=== PATIENT | female | born 1970 | race Caucasian/White ===

== ENCOUNTER 2020-04-22 16:00 | Inpatient (IN) | payer BC, OTHER ==
[~2020-04-22] VITALS: Ht 157.5 cm; Wt 77.5 kg
[2020-04-22] MEDS: BUDESONIDE (INHALATION) 180 MCG IH IN SCH (08:00)
[2020-04-22] MEDS ORDERED: ONDANSETRON HCL 4 MG/2 ML VIAL IV ONE (16:30)
[2020-04-22] MEDS ORDERED: SODIUM CHLORIDE 0.9% 1,000 ML IVB ONE (16:30)
[2020-04-22] MEDS ORDERED: ACETAMINOPHEN 325 MG TAB PO ONE ×2 (17:00)
[2020-04-22 17:37] LABS: Basophils # (auto) 0 10 ^3/uL (0-0.2); Basophils % (auto) 0.3 % (0.0-2.0); Eosinophils # (auto) 0 10 ^3/uL (0-0.8); Hematocrit 41.8 % (36.0-46.0); Hemoglobin 14.3 g/dL (12.2-16.2); Lymphocytes # (auto) 0.7 10 ^3/uL (0.4-5.4); Lymphocytes % (auto) 17.7 % (10.0-50.0); Mean Corpuscular Hemoglobin 30.5 pg (28.0-32.0); Mean Corpuscular Hgb Conc. 34.2 g/dL (32.0-36.0); Mean Corpuscular Volume 89.3 fL (80.0-100.0); Monocytes # (auto) 0.2 10 ^3/uL (0-1.3); Neutrophils # (auto) 3.2 10 ^3/uL (1.6-8.6); Platelet Count (auto) 156 10^3/uL (140-450); Red Blood Cells 4.69 10^6/uL (4.0-5.20); Red Cell Distribution Width 13.2 % (11.8-14.3); White Blood Cell 4.1 10^3/uL (4.4-10.8)
[2020-04-22 17:54] LABS: Calcium 8.3 mg/dL (8.5-10.1); Magnesium 2.3 mg/dL (1.6-2.6); Potassium 4.4 mmol/L (3.5-5.1)
[2020-04-22 17:57] LABS: BUN/Creatinine Ratio 12.3; Bilirubin, Total 0.3 mg/dL (0.2-1.0); Total Protein 6.9 g/dL (6.4-8.2)
[2020-04-22] MEDS ORDERED: MORPHINE SULF INJ 2 MG/ML SYRINGE 1ML IV PRN ×2 (18:00→19:45)
[2020-04-22] MEDS ORDERED: NITROGLYCERIN 0.4 MG SL TAB SL PRN (18:00)
[2020-04-22 18:01] LABS: INR 0.94 (0.9-1.15); Partial Thromboplastin Time 28.5 sec (23.0-31.2)
[2020-04-22] MEDS ORDERED: LACTULOSE 20Gm/30ML SOLN PO PRN (19:45)
[2020-04-22] MEDS ORDERED: REMDESIVIR PER PHARMACY IV SCH (19:45)
[2020-04-22] MEDS ORDERED: traMADol HCL 50 MG TAB PO PRN (19:45)
[2020-04-22] MEDS ORDERED: LORazepam 0.5 MG TAB PO PRN (19:45)
[2020-04-22] MEDS ORDERED: DEXTROSE (50%) 50ML SYRG IV PRN (19:45)
[2020-04-22] MEDS: SODIUM CHLORIDE 0.9% 1,000 ML IV SCH (21:43)
[2020-04-22] MEDS: DOXYCYCLINE 100MG/250ML 250 ML IV SCH (21:44)
[2020-04-22] MEDS: FAMOTIDINE 20 MG TAB PO SCH (21:44)
[2020-04-22] MEDS: ACCU-CHEK COMFORT CURVE STRIP VI SCH (22:32)
[2020-04-22] MEDS: InsuLIN REG 1unit/0.01ml Soln (100units/ml) SC SCH (22:33)
[2020-04-22] MEDS: ACETAMINOPHEN 325 MG TAB PO PRN (22:43)
[2020-04-22 23:21] LABS: Urine Bacteria FEW /hpf (None Seen); Urine Blood Negative /uL (Negative); Urine Mucus FEW (None Seen); Urine Specific Gravity 1.017 (1.001-1.035); Urine WBC 2 /hpf (0 - 5)
[2020-04-23] MEDS ORDERED: OMEP-263 PO (00:05)
[2020-04-23] MEDS ORDERED: LEVO50TA7 PO (00:05)
[2020-04-23] MEDS ORDERED: AMLO5TAB15 PO (00:05)
[2020-04-23] MEDS ORDERED: ATOR10TA52 PO (00:05)
[2020-04-23] MEDS ORDERED: METF-916 PO (00:05)
[2020-04-23] MEDS ORDERED: LOSA-69 PO (00:05)
[2020-04-23] MEDS ORDERED: TRAM50TA2 PO (00:05)
[2020-04-23 00:20] VITALS: BP 113/69
[2020-04-23 05:03] VITALS: BP 143/88
[2020-04-23 05:15] VITALS: BP 121/68
[2020-04-23] MEDS: ACCU-CHEK COMFORT CURVE STRIP VI SCH ×4 (06:01→21:56)
[2020-04-23] MEDS: InsuLIN REG 1unit/0.01ml Soln (100units/ml) SC SCH ×4 (06:01→21:59)
[2020-04-23 06:39] LABS: Basophils # (auto) 0 10 ^3/uL (0-0.2); Basophils % (auto) 0.9 % (0.0-2.0); Eosinophils # (auto) 0 10 ^3/uL (0-0.8); Eosinophils % (auto) 0.1 % (0.0-7.0); Hematocrit 42.4 % (36.0-46.0); Hemoglobin 14.1 g/dL (12.2-16.2); Lymphocytes % (auto) 24.5 % (10.0-50.0); Mean Corpuscular Hemoglobin 29.9 pg (28.0-32.0); Mean Corpuscular Hgb Conc. 33.3 g/dL (32.0-36.0); Mean Corpuscular Volume 89.9 fL (80.0-100.0); Monocytes # (auto) 0.2 10 ^3/uL (0-1.3); Neutrophils # (auto) 2.9 10 ^3/uL (1.6-8.6); Neutrophils % (auto) 70.5 % (37.0-80.0); Nucleated Red Blood Cells % 0.1 %; Platelet Count (auto) 154 10^3/uL (140-450); Red Blood Cells 4.72 10^6/uL (4.0-5.20); Red Cell Distribution Width 13.5 % (11.8-14.3); White Blood Cell 4.1 10^3/uL (4.4-10.8)
[2020-04-23 07:01] LABS: Potassium 3.6 mmol/L (3.5-5.1)
[2020-04-23 07:12] LABS: Albumin 2.9 g/dL (3.4-5.0); BUN/Creatinine Ratio 8.9; Bilirubin, Total 0.4 mg/dL (0.2-1.0); Total Protein 6.8 g/dL (6.4-8.2)
[2020-04-23] MEDS: BUDESONIDE (INHALATION) 180 MCG IH IN SCH ×2 (07:30→22:00)
[2020-04-23 09:00] VITALS: BP 115/69
[2020-04-23] MEDS ORDERED: cefTRIAXone 1GM/50ML D5W 50 ML IV SCH (09:00)
--- NOTE | 2020-04-23 09:00 | NUR ---
PATIENT SWABBED FOR COVID IN-HOUSE, SENT SWAB PER PROTOCOL WITH LEX TO LAB.
[2020-04-23] MEDS: SODIUM CHLORIDE 0.9% 1,000 ML IV SCH (09:10)
[2020-04-23] MEDS: DexAMETHasone SOD PHOS 10MG/1ML VIAL INJ IV SCH (09:10)
[2020-04-23] MEDS: DOXYCYCLINE 100MG/250ML 250 ML IV SCH (09:10)
[2020-04-23] MEDS ORDERED: REMDESIVIR PER PHARMACY IV SCH (09:45)
[2020-04-23] MEDS ORDERED: ENOXAPARIN SOD 40 MG/0.4 ML SYRINGE SC SCH (10:00)
[2020-04-23] MEDS ORDERED: POTASSIUM CHL 10 Meq TABLET PO ONE (10:30)
[2020-04-23] MEDS ORDERED: FUROSEMIDE 20 MG/2 ML VIAL IV ONE (10:30)
[2020-04-23] MEDS: ZINC SULFATE 220mg CAP or TAB PO SCH (10:35)
[2020-04-23] MEDS: FAMOTIDINE 20 MG TAB PO SCH ×2 (10:35→21:56)
[2020-04-23] MEDS: CHOLECALCIFEROL (VITD3) 2,000 UNIT CAP PO SCH (10:36)
[2020-04-23] MEDS: ENOXAPARIN SOD 80 MG/0.8ML SYRINGE SC SCH ×2 (10:36→21:56)
[2020-04-23] MEDS: ASCORBIC ACID 1,000 MG TAB PO SCH (10:36)
[2020-04-23] MEDS ORDERED: ENOXAPARIN SOD 40 MG/0.4 ML SYRINGE SC ONE (10:45)
--- NOTE | 2020-04-23 11:25 | NUR ---
PATIENT SWABBED FOR FLUE A/B RAPID. SENT TO LAB.
[2020-04-23] MEDS: PIPERACILLIN-TAZOB 3.375GM 100 ML IV SCH ×3 (11:33→23:38)
[2020-04-23] MEDS: ALBUTEROL SULF HFA 90MCG INH 200DOSE IN PRN ×2 (14:23→23:20)
[2020-04-23 17:36] VITALS: BP 121/78
--- NOTE | 2020-04-23 18:30 | NUR ---
PATIENT WAS CONSENTED BY DR CHÁVEZ AND GIVEN FACT SHEET BY MYSELF, PATIENT INFORMED OF POTENTIAL RISK/BENEFIT, INFORMED OF ALTERNATIVES, INFORMED THAT REMEDSEVIR IS AN UNAPPROVED DRUG AND AUTHORIZED FOR USE UNDER [place]. INFORMED PATIENT SHE HAS THE OPTION TO REFUSE OR ACCEPT. PATIENT VERBALIZED UNDERSTANDING OF ALL INFORMATION WHICH WAS PROVIDED BY THE DR AND MYSELF.
--- NOTE | 2020-04-23 19:43 | NUR ---
Opening Shift Note Assumed care of patient, awake and alert. No S/S of distress/SOB or pain. Instructed on POC and to call for assist PRN, will continue to monitor for changes Q1hr and PRN.
[2020-04-23 23:40] VITALS: BP 104/57
[2020-04-24] MEDS: ACETAMINOPHEN 325 MG TAB PO PRN ×3 (04:48→21:55)
[2020-04-24 05:20] VITALS: BP 89/65
[2020-04-24] MEDS: LEVOTHYROXINE SODIUM 50 MCG TAB PO SCH (06:12)
[2020-04-24] MEDS: InsuLIN REG 1unit/0.01ml Soln (100units/ml) SC SCH ×4 (06:12→21:48)
[2020-04-24] MEDS: PIPERACILLIN-TAZOB 3.375GM 100 ML IV SCH ×3 (06:12→18:30)
[2020-04-24] MEDS: ACCU-CHEK COMFORT CURVE STRIP VI SCH ×4 (06:12→21:42)
[2020-04-24 06:18] LABS: Basophils # (auto) 0 10 ^3/uL (0-0.2); Basophils % (auto) 0.1 % (0.0-2.0); Eosinophils # (auto) 0 10 ^3/uL (0-0.8); Hematocrit 38.6 % (36.0-46.0); Lymphocytes # (auto) 0.8 10 ^3/uL (0.4-5.4); Lymphocytes % (auto) 10.8 % (10.0-50.0); Mean Corpuscular Hemoglobin 30.2 pg (28.0-32.0); Mean Corpuscular Hgb Conc. 33.8 g/dL (32.0-36.0); Mean Corpuscular Volume 89.3 fL (80.0-100.0); Monocytes # (auto) 0.3 10 ^3/uL (0-1.3); Monocytes % (auto) 4.2 % (0.0-12.0); Neutrophils # (auto) 6.1 10 ^3/uL (1.6-8.6); Neutrophils % (auto) 84.9 % (37.0-80.0); Platelet Count (auto) 186 10^3/uL (140-450); Red Blood Cells 4.32 10^6/uL (4.0-5.20); Red Cell Distribution Width 13.5 % (11.8-14.3); White Blood Cell 7.2 10^3/uL (4.4-10.8)
[2020-04-24 06:31] LABS: Potassium 3.8 mmol/L (3.5-5.1)
[2020-04-24 06:42] LABS: Albumin 2.6 g/dL (3.4-5.0); BUN/Creatinine Ratio 13.2; Bilirubin, Total 0.4 mg/dL (0.2-1.0); Calcium 8.2 mg/dL (8.5-10.1); Magnesium 2.3 mg/dL (1.6-2.6); Total Protein 6.3 g/dL (6.4-8.2)
[2020-04-24] MEDS: BUDESONIDE (INHALATION) 180 MCG IH IN SCH ×2 (07:26→19:50)
[2020-04-24 09:00] VITALS: BP 104/70
[2020-04-24] MEDS: DexAMETHasone SOD PHOS 10MG/1ML VIAL INJ IV SCH (09:45)
[2020-04-24] MEDS: POTASSIUM CHL 10 Meq TABLET PO SCH (09:45)
[2020-04-24] MEDS: FAMOTIDINE 20 MG TAB PO SCH ×2 (09:45→21:42)
[2020-04-24] MEDS: ZINC SULFATE 220mg CAP or TAB PO SCH (09:45)
[2020-04-24] MEDS: ASCORBIC ACID 1,000 MG TAB PO SCH (09:45)
[2020-04-24] MEDS: CHOLECALCIFEROL (VITD3) 2,000 UNIT CAP PO SCH (09:45)
[2020-04-24] MEDS: FUROSEMIDE 20 MG/2 ML VIAL IV SCH (09:46)
[2020-04-24] MEDS: ENOXAPARIN SOD 80 MG/0.8ML SYRINGE SC SCH ×2 (09:46→21:42)
[2020-04-24 10:27] LABS: Hepatitis B Surface Antibody Negative
--- NOTE | 2020-04-24 10:45 | NUR ---
Called pharmacy to ensure they knew about patients covid status. They will prepare remdesevir.
[2020-04-24 11:03] LABS: Hepatitis A Total Antibody Positive
--- NOTE | 2020-04-24 11:59 | NUR ---
Waiting for pharmacy to send zosyn.
[2020-04-24] MEDS: PROMETHAZINE HCL 25 MG/ML 1ML IV PRN (12:35)
[2020-04-24 14:02] LABS: Hepatitis B Surface Antigen Negative (Negative); Hepatitis C Antibody Negative (Negative)
[2020-04-24 14:03] LABS: Hepatitis B Core Total AB Positive
[2020-04-24 14:22] VITALS: BP 101/68
[2020-04-24] MEDS: ALBUTEROL SULF HFA 90MCG INH 200DOSE IN PRN (14:38)
--- NOTE | 2020-04-24 16:18 | NUR ---
D/C Planning Regarding social service consult for home oxygen at 2 l/min. Faxed clinical information to [facility] requesting for oxygen portable to be deliver to front lobby and concentrate oxygen to home. Per Margarita with [facility] order has been received and deliver to front lobby. [facility] Esqueda confirmed that oxygen has been deliver to patient at 14:30.
[2020-04-24 16:57] VITALS: BP 110/73
[2020-04-24] MEDS ORDERED: REMDESIVIR 200 MG in NS 210ml LOADING DOSE ADULT IV ONE (17:00)
--- NOTE | 2020-04-24 18:30 | NUR ---
REMDESEVIR VITALS PRE- 110/73, 98.9, 66. 20,92% 15 MIN- 112/76, 98.1, 68, 20, 92% POST- 116/74, 98.1, 70, 20, 91%
--- NOTE | 2020-04-24 18:42 | NUR ---
PER BLOOD BANK PLASMA READY TO THAW, WILL INFORM STORAGE CENTER MANAGER.
--- NOTE | 2020-04-24 21:56 | NUR ---
01/26 PAIN. PATIENT C/O 01/26 HEADACHE . PATIENT REFUSED MORPHINE AND ONLY WANTS TYLENOL. ICE PACK TO BE GIVEN NOW.
[2020-04-24 23:43] VITALS: BP 100/67
[2020-04-25] VITALS (8 sets, daily range): BP systolic 96–116; BP diastolic 50–69
[2020-04-25] MEDS: ALBUTEROL SULF HFA 90MCG INH 200DOSE IN PRN ×3 (01:07→21:30)
[2020-04-25] MEDS: PIPERACILLIN-TAZOB 3.375GM 100 ML IV SCH ×4 (05:32→18:00)
[2020-04-25] MEDS: ACETAMINOPHEN 325 MG TAB PO PRN ×2 (05:41→20:45)
[2020-04-25] MEDS: ACCU-CHEK COMFORT CURVE STRIP VI SCH ×4 (05:52→22:01)
[2020-04-25] MEDS: LEVOTHYROXINE SODIUM 50 MCG TAB PO SCH (05:52)
[2020-04-25] MEDS: InsuLIN REG 1unit/0.01ml Soln (100units/ml) SC SCH ×4 (05:53→22:00)
[2020-04-25 07:09] LABS: Potassium 3.4 mmol/L (3.5-5.1)
--- NOTE | 2020-04-25 07:30 | NUR ---
RECEIVED REPORT FROM NIGHT NURSE. PATIENT RESTING IN BED, NO DISTRESS NOTED. NASAL CANNULA 4L. WILL CONTINUE TO MONITOR.
[2020-04-25 07:32] LABS: Albumin 2.6 g/dL (3.4-5.0); BUN/Creatinine Ratio 17.1; Bilirubin, Total 0.5 mg/dL (0.2-1.0); Calcium 8.3 mg/dL (8.5-10.1); Total Protein 6.6 g/dL (6.4-8.2)
[2020-04-25] MEDS: BUDESONIDE (INHALATION) 180 MCG IH IN SCH ×2 (07:50→21:30)
[2020-04-25] MEDS: CHOLECALCIFEROL (VITD3) 2,000 UNIT CAP PO SCH (10:51)
[2020-04-25] MEDS: ENOXAPARIN SOD 80 MG/0.8ML SYRINGE SC SCH ×2 (10:51→21:57)
[2020-04-25] MEDS: FAMOTIDINE 20 MG TAB PO SCH ×2 (10:51→21:57)
[2020-04-25] MEDS: ASCORBIC ACID 1,000 MG TAB PO SCH (10:52)
[2020-04-25] MEDS: FUROSEMIDE 20 MG/2 ML VIAL IV SCH (10:52)
[2020-04-25] MEDS: POTASSIUM CHL 10 Meq TABLET PO SCH (10:52)
[2020-04-25] MEDS ORDERED: POTASSIUM CHL 20 Meq TABLET PO ONE (11:00)
--- NOTE | 2020-04-25 11:00 | NUR ---
SPOKE WITH DR. CHÁVEZ, UPDATED HER ON PATIENT CONDITION. ORDERS RECEIVED, WILL PLACE AND CARRY OUT.
--- NOTE | 2020-04-25 11:02 | NUR ---
Nutrition Assessment Notes Please refer to link for full assessment notes. Est Energy needs: [id number] kcals (17-20 kcal/kgBW) Est Protein needs: 66-83 gms/day (0.8-1.0 gm/kgBW) Will continue to monitor and reassess prn. Addendum: 04/25/20 at [address] Amended: Links added.
[2020-04-25] MEDS: ZINC SULFATE 220mg CAP or TAB PO SCH (12:09)
[2020-04-25] MEDS: DexAMETHasone SOD PHOS 10MG/1ML VIAL INJ IV SCH (12:09)
[2020-04-25] MEDS: THROAT LOZENGES(CEPASTAT) MT PRN (12:11)
--- NOTE | 2020-04-25 12:16 | NUR ---
Assessment Patient is a 49-year-old female who is alert and oriented. Prior to admission patient reside with her fiance Desmond and functioned independently. Prior to admission patient could care for her own ADLs. Patient does not have any medical equipment now. Per patient she will return home to her prior living arrangements post discharge and Desmond will transport patient at any time on discharge day. Advised patient to follow up with primary doctor upon d.c day. Informed patient she has the right to speak to Social Service regarding all care. Informed patient she has the right to participate in all discharge planning. Patient does not have an advance directive. Patient has been provided with an advanced directive. Patient verbalized understanding and agrees to discharge plan. Advised patient home oxygen was order on Friday. Per patient oxygen portable its a bedside and [facility] has deliver concentrate oxygen to home on Friday. Addendum: 04/25/20 at 1220 by AMARILIS REYNOSO Amended: Links added.
--- NOTE | 2020-04-25 16:49 | NUR ---
PAGED DR CHÁVEZ REGARDING DECREASED BLOOD PRESSURE 98/62 PRIOR TO REMDESIVIR ADMINISTRATION. WILL HOLD MEDICATION UNTIL FURTHER INSTRUCTION BY . Addendum: 04/25/20 at 1708 by Cleo Hernandez RN NO CALL BACK FROM DR. CHÁVEZ BLOOD PRESSURE RE-CHECKED 106/69. REMDESIVIR INITIATED. RUNNING OVER 2 HOURS. WILL MONITOR BLOOD PRESSURE.
--- NOTE | 2020-04-25 17:05 | NUR ---
REMDESIVIR REMDESIVIR INITIATED VITALS BP 106/69, HR 71, RR 18, O2 93% TEMP 98.5. RUNNING AT 175ML/HR OVER 2 HOURS. WILL MONITOR VITALS.
[2020-04-25] MEDS: REMDESIVIR 100 MG in SODIUM CHL 0.9% 250 ML IV SCH (17:06)
--- NOTE | 2020-04-25 17:20 | NUR ---
REMDESIVIR 15 MIN VITALS BP 101/63, HR 76, RR 18, O2 92%, TEMP 98.9. PATIENT TOLERATING MEDICATION WILL, WILL CONTINUE TO MONITOR.
--- NOTE | 2020-04-25 19:00 | NUR ---
REMDESIVIR REMDESIVIR COMPLETED. PATIENT TOLERATED MEDICATION WELL. VITALS BP 96/62, HR 81, RR 22, O2 92% TEMP 98.3. WILL CONTINUE TO MONITOR. WILL ENDORSE 1 HOUR POST TRANSFUSION VITALS TO ONCOMING NIGHT NURSE.
--- NOTE | 2020-04-25 19:11 | NUR ---
PATIENT CARE ENDORSED TO NIGHT NURSE.
--- NOTE | 2020-04-25 20:00 | NUR ---
REMDESBERT VITAL SIGNS 1 HOUR POST INFUSION BP 98/60 HR 75 SPO2 92% TEMP 99.1 RR 24. PATIENT HAS NO S/S OF DISTRESS OR SOB. WILL CONTINUE TO MONITOR Q1 AND PRN.
--- NOTE | 2020-04-25 21:46 | NUR ---
TEMPERATURE 100.3F STARTED COOLING MEASURES, PLACED ICEPACKS UNDER BILATERAL UNDERARMS AND GROIN. PATIENT COMPLAINS OF HEADACHE AT THIS TIME. WILL MEDICATE PER MD ORDERS. Addendum: 04/26/20 at 0454 by Nisa Ott RN TEMPERATURE RECHECK 98.7 F, PATIENT IS RESTING COMFORTABLY IN BED, NO COMPLAINTS. WILL CONTINUE TO MONITOR PATIENT Q1 AND PRN.
[2020-04-25] MEDS: PROMETHAZINE HCL 25 MG/ML 1ML IV PRN (22:09)
[2020-04-26] MEDS: PIPERACILLIN-TAZOB 3.375GM 100 ML IV SCH ×4 (00:53→18:22)
[2020-04-26] MEDS: ACETAMINOPHEN 325 MG TAB PO PRN (02:49)
[2020-04-26] MEDS: THROAT LOZENGES(CEPASTAT) MT PRN ×3 (06:35→20:40)
[2020-04-26] MEDS: LEVOTHYROXINE SODIUM 50 MCG TAB PO SCH (06:35)
[2020-04-26] MEDS: InsuLIN REG 1unit/0.01ml Soln (100units/ml) SC SCH ×4 (06:35→21:56)
[2020-04-26] MEDS: ACCU-CHEK COMFORT CURVE STRIP VI SCH ×4 (06:35→21:49)
--- NOTE | 2020-04-26 07:30 | NUR ---
RECEIVED REPORT FROM NIGHT NURSE. PATIENT RESTING IN BED, NO DISTRESS NOTED. 6L NC, SATING 91%. WILL CONTINUE TO MONITOR.
[2020-04-26] MEDS: ALBUTEROL SULF HFA 90MCG INH 200DOSE IN PRN ×2 (08:00→19:24)
[2020-04-26 09:00] VITALS: BP 107/63
[2020-04-26] MEDS: BUDESONIDE (INHALATION) 180 MCG IH IN SCH (10:00)
[2020-04-26] MEDS: DexAMETHasone SOD PHOS 10MG/1ML VIAL INJ IV SCH (10:18)
[2020-04-26] MEDS: ZINC SULFATE 220mg CAP or TAB PO SCH (10:18)
[2020-04-26] MEDS: POTASSIUM CHL 10 Meq TABLET PO SCH (10:18)
[2020-04-26] MEDS: FUROSEMIDE 20 MG/2 ML VIAL IV SCH (10:18)
[2020-04-26] MEDS: FAMOTIDINE 20 MG TAB PO SCH ×2 (10:19→21:56)
[2020-04-26] MEDS: CHOLECALCIFEROL (VITD3) 2,000 UNIT CAP PO SCH (10:19)
[2020-04-26] MEDS: ENOXAPARIN SOD 80 MG/0.8ML SYRINGE SC SCH ×2 (10:19→21:57)
--- NOTE | 2020-04-26 11:43 | NUR ---
DR. CHÁVEZ AT BEDSIDE. ORDERS RECEIVED, WILL PLACE AND CARRY OUT.
[2020-04-26] MEDS ORDERED: ONDANSETRON HCL 4 MG/2 ML VIAL IV PRN (12:15)
[2020-04-26] MEDS: PROMETHAZINE HCL 25 MG/ML 1ML IV PRN (12:31)
[2020-04-26 13:00] VITALS: BP 111/61
--- NOTE | 2020-04-26 16:00 | NUR ---
REMDESIVIR REMDESIVIR INITIATED. VITALS BP 107/68, HR 65, RR 20, O2 92%, TEMP 97.8. WILL CONTINUE TO MONITOR.
--- NOTE | 2020-04-26 16:15 | NUR ---
REMDESIVIR REMDESIVIR 15 MINUTE VITALS. BP 99/63, HR 71, RR22, O2 91%, TEMP 98.0. DUE TO DECREASE IN BLOOD PRESSURE, MEDICATION SLOWED DOWN TO RUN OVER 2 HOURS. WILL CONTINUE TO MONITOR.
[2020-04-26] MEDS: REMDESIVIR 100 MG in SODIUM CHL 0.9% 250 ML IV SCH (16:16)
[2020-04-26 17:00] VITALS: BP 107/68
[2020-04-26] MEDS: ASCORBIC ACID 1,000 MG TAB PO SCH (17:06)
--- NOTE | 2020-04-26 18:23 | NUR ---
REMDESIVIR MEDICATION FINISHED INFUSING. END VITALS BP, 100/70, HR 69, RR 18, O2 91%, TEMP 98.0. PATIENT TOLERATED MEDICATION WELL. WILL CONTINUE TO MONITOR.
[2020-04-26 22:00] VITALS: BP 98/67
[2020-04-27] MEDS: THROAT LOZENGES(CEPASTAT) MT PRN ×3 (00:26→22:45)
[2020-04-27] MEDS: PIPERACILLIN-TAZOB 3.375GM 100 ML IV SCH ×4 (00:26→18:00)
[2020-04-27 05:35] VITALS: BP 109/68
[2020-04-27] MEDS: ACCU-CHEK COMFORT CURVE STRIP VI SCH ×4 (06:31→21:54)
[2020-04-27] MEDS: InsuLIN REG 1unit/0.01ml Soln (100units/ml) SC SCH ×4 (06:31→22:22)
[2020-04-27] MEDS: LEVOTHYROXINE SODIUM 50 MCG TAB PO SCH (06:33)
[2020-04-27 06:51] LABS: Basophils # (auto) 0 10 ^3/uL (0-0.2); Basophils % (auto) 0.2 % (0.0-2.0); Eosinophils # (auto) 0 10 ^3/uL (0-0.8); Eosinophils % (auto) 0.4 % (0.0-7.0); Hematocrit 42.7 % (36.0-46.0); Hemoglobin 14.2 g/dL (12.2-16.2); Lymphocytes # (auto) 1.2 10 ^3/uL (0.4-5.4); Lymphocytes % (auto) 29.7 % (10.0-50.0); Mean Corpuscular Hemoglobin 29.8 pg (28.0-32.0); Mean Corpuscular Hgb Conc. 33.3 g/dL (32.0-36.0); Mean Corpuscular Volume 89.5 fL (80.0-100.0); Monocytes # (auto) 0.5 10 ^3/uL (0-1.3); Monocytes % (auto) 11.2 % (0.0-12.0); Neutrophils # (auto) 2.4 10 ^3/uL (1.6-8.6); Neutrophils % (auto) 58.5 % (37.0-80.0); Nucleated Red Blood Cells % 0.1 %; Platelet Count (auto) 302 10^3/uL (140-450); Red Blood Cells 4.77 10^6/uL (4.0-5.20); Red Cell Distribution Width 13.2 % (11.8-14.3); White Blood Cell 4.1 10^3/uL (4.4-10.8)
[2020-04-27 07:03] LABS: Potassium 3.9 mmol/L (3.5-5.1)
[2020-04-27 07:18] LABS: Albumin 2.5 g/dL (3.4-5.0); BUN/Creatinine Ratio 21.3; Bilirubin, Total 0.4 mg/dL (0.2-1.0); Calcium 8.7 mg/dL (8.5-10.1); Magnesium 2.9 mg/dL (1.6-2.6); Total Protein 6.7 g/dL (6.4-8.2)
[2020-04-27] MEDS: BUDESONIDE (INHALATION) 180 MCG IH IN SCH ×2 (07:31→10:00)
[2020-04-27 09:00] VITALS: BP 101/58
[2020-04-27] MEDS: CHOLECALCIFEROL (VITD3) 2,000 UNIT CAP PO SCH (10:00)
[2020-04-27] MEDS: FAMOTIDINE 20 MG TAB PO SCH ×2 (10:00→21:54)
[2020-04-27] MEDS: ENOXAPARIN SOD 80 MG/0.8ML SYRINGE SC SCH ×2 (10:00→21:54)
[2020-04-27] MEDS: ASCORBIC ACID 1,000 MG TAB PO SCH (10:00)
[2020-04-27] MEDS: FUROSEMIDE 20 MG/2 ML VIAL IV SCH (10:00)
[2020-04-27] MEDS: ZINC SULFATE 220mg CAP or TAB PO SCH (10:00)
[2020-04-27] MEDS: POTASSIUM CHL 10 Meq TABLET PO SCH (10:00)
[2020-04-27] MEDS: DexAMETHasone SOD PHOS 10MG/1ML VIAL INJ IV SCH (10:00)
[2020-04-27] MEDS: ACETAMINOPHEN 325 MG TAB PO PRN (11:40)
--- NOTE | 2020-04-27 12:52 | NUR ---
IV insertion IV access obtained, via clean sterile technique by inserting 22 gauge catheter at LAC after 2 attempts. IV secured properly. No trauma to site. Patient tolerated well.
[2020-04-27 13:00] VITALS: BP 102/67
[2020-04-27 17:00] VITALS: BP 110/63
[2020-04-27] MEDS: REMDESIVIR 100 MG in SODIUM CHL 0.9% 250 ML IV SCH (17:05)
--- NOTE | 2020-04-27 19:35 | NUR ---
Opening Shift Note Assumed care of patient, awake and alert. Patient is currently on 4L NC with a SPO2 of 92% with no S/S of distress/SOB. Bed is locked in lowest position with call light within reach. Instructed on POC and to call for assist PRN, will continue to monitor for changes Q1hr and PRN.
[2020-04-27 22:09] VITALS: BP 106/65
[2020-04-28] MEDS: PIPERACILLIN-TAZOB 3.375GM 100 ML IV SCH ×4 (00:05→18:00)
[2020-04-28 05:00] VITALS: BP 115/67
[2020-04-28] MEDS: InsuLIN REG 1unit/0.01ml Soln (100units/ml) SC SCH ×3 (06:26→17:00)
[2020-04-28] MEDS: ACCU-CHEK COMFORT CURVE STRIP VI SCH ×3 (06:26→17:00)
[2020-04-28] MEDS: LEVOTHYROXINE SODIUM 50 MCG TAB PO SCH (06:26)
[2020-04-28] MEDS: BUDESONIDE (INHALATION) 180 MCG IH IN SCH (07:31)
--- NOTE | 2020-04-28 07:31 | NUR ---
Respiratory note: PT SEEN AT THIS TIME. PT WAS AWAKE AND ALERT, NO RESP DISTRESS NOTED. HR 64, RR 18, SPO2 94% ON 3L N/C. MDI'S NOT AT BEDSIDE. WILL CALL PHARMACY
[2020-04-28 08:17] VITALS: BP 109/70
[2020-04-28] MEDS: FUROSEMIDE 20 MG/2 ML VIAL IV SCH (09:54)
[2020-04-28] MEDS: DexAMETHasone SOD PHOS 10MG/1ML VIAL INJ IV SCH (09:54)
[2020-04-28] MEDS: ZINC SULFATE 220mg CAP or TAB PO SCH (09:55)
[2020-04-28] MEDS: FAMOTIDINE 20 MG TAB PO SCH (09:56)
[2020-04-28] MEDS: ASCORBIC ACID 1,000 MG TAB PO SCH (09:56)
[2020-04-28] MEDS: POTASSIUM CHL 10 Meq TABLET PO SCH (09:56)
[2020-04-28] MEDS: CHOLECALCIFEROL (VITD3) 2,000 UNIT CAP PO SCH (09:57)
[2020-04-28] MEDS: ENOXAPARIN SOD 80 MG/0.8ML SYRINGE SC SCH (09:57)
--- NOTE | 2020-04-28 10:29 | NUR ---
Dr. Roman at [facility] side
[2020-04-28] MEDS ORDERED: BUDE2SUS3 IN (11:59)
[2020-04-28] MEDS ORDERED: ZINC220T6 PO (11:59)
[2020-04-28] MEDS ORDERED: METH4PAK PO (11:59)
[2020-04-28] MEDS ORDERED: DOXY-286 PO (11:59)
[2020-04-28] MEDS ORDERED: CHOL1CAP47 PO (11:59)
[2020-04-28] MEDS ORDERED: ASCO10003 PO (11:59)
[2020-04-28] MEDS ORDERED: ASPI-378 PO (11:59)
[2020-04-28] MEDS ORDERED: ALBUAER3 IN (11:59)
[2020-04-28 12:00] VITALS: BP 107/78
[2020-04-28 14:09] VITALS: BP 109/70
[2020-04-28] MEDS ORDERED: REMDESIVIR 100 MG in SODIUM CHL 0.9% 250 ML IV ONE (15:00)
[2020-04-28 16:00] VITALS: BP 102/72
--- NOTE | 2020-04-28 17:00 | NUR ---
1700 glucose check refused by pt, pt states "it's okay thank you but I never take insulin at home only while I was here and im going home now so Ill take my metformin tomorrow like I always do". Patient educated on s/s of hyper and hypoglycemia and importance of glucose control and monitoring. Patient verbalized understanding.
--- NOTE | 2020-04-28 17:28 | NUR ---
PRE-REMDESIVIR INFUSION VITALS TEMP 98.3 F, BP-104/68, HR 70, RR 20, SPO2 93% ON 3L. 15 MIN POST REMDESIVIR INFUSION VITALS TEMP 98.1 F, BP-100/72, HR 72, RR 18, SPO2 92% ON 3L. POST REMDESIVIR INFUSION VITALS TEMP 98.4 F, BP-105/56, HR 68, RR 20, SPO2 95% ON 3L.
--- NOTE | 2020-04-28 17:30 | NUR ---
PRESCRIPTIONS FILLED AT [facility] AND DELIVERED AT BED SIDE.
--- NOTE | 2020-04-28 18:10 | NUR ---
Discharge instructions given as ordered. Encourage to follow up with PMD as instructed. All questions and concerns addressed. Patient verbalized understanding. Medication reconciliation form completed and copy given to patient. IV removed with catheter intact, pressure dressing applied. Telemetry unit returned to ICU. Patient taken to vehicle via wheelchair with all personal belongings, including portable home o2 and medications, accompanied by staff No distress noted at time of departure.
== END 2020-04-28 18:05 | disposition home or self-care (01) | DRG 871 ==
LOC: ER 16:00 → TELE 17:57 → TELE-CENTR 04-23 00:18
PROVIDERS: ADMIT Internal Medicine; ATTEND Internal Medicine
PROC: XW033E5 Introduction of Remdesivir Anti-infective into Peripheral Vein, Percutaneous Approach, New Technology Group 5 (ICD-10-PCS; 2020-04-23)
PROC: XW13325 Transfusion of Convalescent Plasma (Nonautologous) into Peripheral Vein, Percutaneous Approach, New Technology Group 5 (ICD-10-PCS; principal; 2020-04-24)
DX: A41.89 Other specified sepsis (principal); U07.1 COVID-19; J96.01 Acute respiratory failure with hypoxia; J12.89 Other viral pneumonia; E11.9 Type 2 diabetes mellitus without complications; E03.9 Hypothyroidism, unspecified; E55.9 Vitamin D deficiency, unspecified; E66.01 Morbid (severe) obesity due to excess calories; E78.5 Hyperlipidemia, unspecified; I10 Essential (primary) hypertension; K52.9 Noninfective gastroenteritis and colitis, unspecified; Z82.49 Family history of ischemic heart disease and other diseases of the circulatory system; Z85.820 Personal history of malignant melanoma of skin; Z68.31 Body mass index [BMI] 31.0-31.9, adult
CPT/HCPCS: 36415; 71045; 71275; 76705; 80053; 80061; 81001; 82306; 82962; 83036; 83690; 83735; 84132; 84443; 84702; 85025; 85379; 85610; 85730; 86704; 86706; 86708; 86803; 86850; 86900; 86901; 87040; 87070; 87205; 87340; 87804; 94640; 96361; 96374; 97163; G0378; J0696; J1100; J1815; J2405; J2543; J3490

== ENCOUNTER 2021-06-06 17:45 | Emergency (ER) | payer BC ==
[~2021-06-06] VITALS: Ht 157.5 cm; Wt 81.6 kg
[~2021-06-06 17:45] MED LIST: ALBUAER3 IN; AMLO-489 PO; ASCO10003 PO; ASPI-378 PO; ATOR10TA52 PO; BUDE2SUS3 IN; CHOL1CAP47 PO; DOXY-286 PO; LEVO50TA7 PO; LOSA-69 PO; METF-916 PO; METH4PAK PO; OMEP-263 PO; TRAM50TA2 PO; ZINC220T6 PO
[2021-06-06] MEDS ORDERED: ASPirin 81 mg TAB PO ONE (18:45)
[2021-06-06 22:02] LABS: Basophils # (auto) 0.1 10 ^3/uL (0-0.2); Basophils % (auto) 0.7 % (0.0-2.0); Eosinophils # (auto) 0.2 10 ^3/uL (0-0.8); Eosinophils % (auto) 2.2 % (0.0-7.0); Hematocrit 44.8 % (36.0-46.0); Lymphocytes # (auto) 3.7 10 ^3/uL (0.4-5.4); Mean Corpuscular Hemoglobin 29.6 pg (28.0-32.0); Mean Corpuscular Hgb Conc. 33.5 g/dL (32.0-36.0); Mean Corpuscular Volume 88.4 fL (80.0-100.0); Monocytes # (auto) 0.5 10 ^3/uL (0-1.3); Monocytes % (auto) 7.1 % (0.0-12.0); Neutrophils # (auto) 3.1 10 ^3/uL (1.6-8.6); Nucleated Red Blood Cells % 0.2 %; Red Blood Cells 5.07 10^6/uL (4.0-5.20); Red Cell Distribution Width 13.3 % (11.8-14.3); White Blood Cell 7.6 10^3/uL (4.4-10.8)
[2021-06-06 22:20] LABS: Albumin 3.8 g/dL (3.4-5.0); Calcium 8.8 mg/dL (8.5-10.1)
[2021-06-06 22:31] LABS: Bilirubin, Total 0.3 mg/dL (0.2-1.0); Total Protein 7.4 g/dL (6.4-8.2)
[2021-06-06 23:20] VITALS: BP 141/87
== END 2021-06-06 23:40 | disposition home or self-care (01) ==
LOC: ER 17:49
DX: R07.89 Other chest pain (principal); E11.9 Type 2 diabetes mellitus without complications; I10 Essential (primary) hypertension; Z79.899 Other long term (current) drug therapy
CPT/HCPCS: 36415; 71045; 80053; 83880; 84484; 85025; 85379; 93005